=== PATIENT | male | born 1995 | race Caucasian/White ===

== ENCOUNTER 2018-02-25 17:27 | Emergency (ER) | payer OTHER ==
[2018-02-25 18:08] VITALS: BP 118/72
--- NOTE | 2018-02-25 18:46 | UC ---
Eye Complaint HPI - HPI Summary HPI Summary: Pt c/o gradual onset of left, generalized eye pain. Pt denies injury, fever, discharge, change in vision, or eye redness. Pt has not taken anything for pain. - History of Current Complaint Chief Complaint: UCGeneralIllness Stated Complaint: SORE THROAT, EYES, COLD SWEATS Time Seen by Provider: 02/25/18 18:39 Hx Obtained From: Patient Onset/Duration: Gradual Onset, Lasting Days, Still Present Timing: Constant Severity Initially: Mild Severity Currently: Mild Pain Intensity: 2 Character: Dull Aggravating Factor(s): Light Alleviating Factor(s): Nothing Associated Signs And Symptoms: Positive: Photophobia - Risk Factors Penetrating Injury Risk Factor: Negative Globe Rupture Risk Factors: Negative Acute Glaucoma Risk Factors: Negative Optic Artery Occlusion Risk Factors: Negative - Allergies/Home Medications Allergies/Adverse Reactions: Allergies Allergy/AdvReac Type Severity Reaction Status Date / Time No Known Allergies Allergy Verified 02/16/16 17:25 Home Medications: Home Medications NK [No Home Medications Reported] 02/25/18 [History Confirmed 02/25/18] PMH/Surg Hx/FS Hx/Imm Hx Previously Healthy: Yes - Surgical History Surgical History: Yes Surgery Procedure, Year, and Place: hypospadia surgery - Family History Known Family History: Positive: None - Social History Alcohol Use: Occasionally Substance Use Type: None Smoking Status (MU): Never Smoked Tobacco Have You Smoked in the Last Year: No - Immunization History Most Recent Influenza Vaccination: FALL 2013 Review of Systems Constitutional: Negative Skin: Negative Eyes: Photophobia, Other - left eye pain ENT: Negative Respiratory: Negative Cardiovascular: Negative Gastrointestinal: Negative Genitourinary: Negative Motor: Negative Neurovascular: Negative Musculoskeletal: Negative Neurological: Headache Psychological: Negative Is Patient Immunocompromised?: No All Other Systems Reviewed And Are Negative: Yes Physical Exam Triage Information Reviewed: Yes Vital Signs: Initial Vital Signs Temp 98.7 F 02/25/18 18:04 Pulse 64 02/25/18 18:04 Resp 16 02/25/18 18:04 BP 118/72 02/25/18 18:04 Pulse Ox 100 02/25/18 18:04 Eye Exam: Normal, Other - PERRLA Eyes: Positive: Conjunctiva Clear ENT Exam: Normal Dental Exam: Normal Neck exam: Normal Respiratory Exam: Normal Cardiovascular Exam: Normal Musculoskeletal Exam: Normal Neurological Exam: Normal Psychological Exam: Normal Skin Exam: Normal Eye Complaint Course/Dx - Differential Dx/Diagnosis Differential Diagnosis/HQI/PQRI: Other - eye pain Provider Diagnoses: left eye pain Discharge - Sign-Out/Discharge Documenting (check all that apply): Patient Departure - Discharge Plan Condition: Stable Disposition: HOME Patient Education Materials: Eye Pain (ED), Safe Use of NSAIDs (ED) Referrals: Thai Hernandez MD [Primary Care Provider] - If Needed Additional Instructions: Please follow up with your eye care provider as soon as possible. - Billing Disposition and Condition Condition: STABLE Disposition: Home
== END 2018-02-25 18:53 | disposition home or self-care (01) ==
LOC: UCCORT 17:27
DX: H57.12 Ocular pain, left eye (principal)
CPT/HCPCS: 99211; G0463

== ENCOUNTER 2018-05-05 11:13 | Emergency (ER) | payer OTHER ==
[2018-05-05 11:35] VITALS: BP 130/77
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
== END 2018-05-05 12:38 | disposition home or self-care (01) ==
LOC: UCCORT 11:13
DX: S06.0X0A Concussion without loss of consciousness, initial encounter (principal); V43.52XA Car driver injured in collision with other type car in traffic accident, initial encounter; Y93.89 Activity, other specified; Y92.410 Unspecified street and highway as the place of occurrence of the external cause; S16.1XXA Strain of muscle, fascia and tendon at neck level, initial encounter; S39.012A Strain of muscle, fascia and tendon of lower back, initial encounter
CPT/HCPCS: 99212; G0463

== ENCOUNTER 2018-05-17 13:06 | Emergency (ER) | payer OTHER ==
[2018-05-17 14:15] VITALS: BP 121/72
--- NOTE | 2018-05-17 15:27 | ED ---
Respiratory - History of Current Complaint Chief Complaint: UCRespiratory Stated Complaint: CONGESTION/CHEST TIGHTNESS/SOB/HENNING Time Seen by Provider: 05/17/18 14:56 Hx Obtained From: Patient Onset/Duration: Lasting Days Initial Severity: Moderate Current Severity: Moderate Pain Intensity: 5 Sputum Amount: Scant Sputum Color: Green Aggravating Factor(s): Nothing Alleviating Factor(s): Nothing Associated Signs and Symptoms: Negative - Risk Factors Status Asthmaticus Risk Factors: Negative Pulmonary Embolism Risk Factors: Negative Cardiac Risk Factors: Negative Pseudomonas Risk Factors: Negative Tuberculosis Risk Factors: Negative - Allergy/Home Medications Allergies/Adverse Reactions: Allergies Allergy/AdvReac Type Severity Reaction Status Date / Time No Known Allergies Allergy Verified 05/17/18 14:07 Home Medications: Home Medications guaiFENesin ER TAB [Mucinex*] 600 mg PO BID PRN 05/17/18 [History Confirmed 02/25] PMH/Surg Hx/FS Hx/Imm Hx Previously Healthy: Yes - Surgical History Surgery Procedure, Year, and Place: Hypospadia Repair, ~1999 Infectious Disease History: No Infectious Disease History: Denies: Traveled Outside the [place] in Last 30 Days - Family History Known Family History: Positive: None Family History: Noncontributory - Social History Alcohol Use: Occasionally Substance Use Type: Reports: None Smoking Status (MU): Never Smoked Tobacco Have You Smoked in the Last Year: No Review of Systems Positive: Chills Eyes: Negative ENT: Negative Cardiovascular: Negative Positive: Cough Gastrointestinal: Negative Genitourinary: Negative Musculoskeletal: Negative Skin: Negative All Other Systems Reviewed And Are Negative: Yes Physical Exam Triage Information Reviewed: Yes Vital Signs On Initial Exam: Initial Vitals Temp Pulse Resp BP Pulse Ox 37.6 C 72 20 121/72 97 05/17/18 14:08 05/17/18 14:08 05/17/18 14:08 05/17/18 14:08 05/17/18 14:08 Vital Signs Reviewed: Yes Appearance: Positive: Well-Appearing Skin: Positive: Warm, Dry Head/Face: Positive: Normal Head/Face Inspection Eyes: Positive: Normal ENT: Positive: Normal ENT inspection Neck: Positive: Supple Respiratory/Lung Sounds: Positive: Clear to Auscultation Cardiovascular: Positive: Normal Abdomen Description: Positive: Nontender Bowel Sounds: Positive: Present Musculoskeletal: Positive: Normal Neurological: Positive: Normal Diagnostics - Vital Signs Vital Signs Temp Pulse Resp BP Pulse Ox 05/17/18 14:08 37.6 C 72 20 121/72 97 - Laboratory Lab Results: Lab Results 05/17/18 Range/Units 15:06 Influenza A (Rapid) Negative (Negative) Influenza B (Rapid) Negative (Negative) Lab Statement: Any lab studies that have been ordered have been reviewed, and results considered in the medical decision making process. Disposition - Diagnoses Provider Diagnoses: Viral URI with cough Discharge - Sign-Out/Discharge Documenting (check all that apply): Patient Departure All imaging exams completed and their final reports reviewed: No Studies - Discharge Plan Condition: Good Disposition: HOME Prescriptions: Albuterol HFA INHALER* [Ventolin HFA Inhaler*] 2 puff INH Q6H PRN #1 mdi PRN Reason: Cough Patient Education Materials: Viral Syndrome (ED) Referrals: Thai Hernandez MD [Primary Care Provider] - - Billing Disposition and Condition Condition: GOOD Disposition: Home
== END 2018-05-17 15:33 | disposition home or self-care (01) ==
LOC: UCCORT 13:06
DX: J06.9 Acute upper respiratory infection, unspecified (principal); R05 Cough
CPT/HCPCS: 99212; G0463

== ENCOUNTER 2019-02-19 15:01 | Emergency (ER) | payer OTHER ==
[2019-02-19 16:45] VITALS: BP 120/53
--- NOTE | 2019-02-19 17:03 | UC ---
Ear Complaint HPI - HPI Summary HPI Summary: Pt presents with c/o gradual onset of "clogged feeling and hearing loss" in left ear. Pt was told that he has cerumen in ear canal but has not had time to have it removed. - History of Current Complaint Chief Complaint: UCEar Stated Complaint: LEFT EAR CONCERN Time Seen by Provider: 02/19/19 16:47 Hx Obtained From: Patient Onset/Duration: Gradual Onset, Lasting Days, Still Present Severity Initially: Mild Severity Currently: Mild Pain Intensity: 0 Associated Signs/Symptoms: Positive: Hearing Loss - Allergies/Home Medications Allergies/Adverse Reactions: Allergies Allergy/AdvReac Type Severity Reaction Status Date / Time No Known Allergies Allergy Verified 02/19/19 16:43 PMH/Surg Hx/FS Hx/Imm Hx Previously Healthy: Yes - Surgical History Surgical History: Yes Surgery Procedure, Year, and Place: Hypospadia Repair, ~1999 - Family History Known Family History: Positive: Cardiac Disease Family History: Noncontributory - Social History Occupation: Employed Full-time Alcohol Use: Occasionally Substance Use Type: None Smoking Status (MU): Never Smoked Tobacco Have You Smoked in the Last Year: No - Immunization History Most Recent Influenza Vaccination: FALL 2013 Vaccination Up to Date: Yes Review of Systems All Other Systems Reviewed And Are Negative: Yes Constitutional: Positive: Negative Skin: Positive: Negative Eyes: Positive: Negative ENT: Positive: Other - ear fullness and hearing loss left ear Respiratory: Positive: Negative Cardiovascular: Positive: Negative Gastrointestinal: Positive: Negative Genitourinary: Positive: Negative Motor: Positive: Negative Neurovascular: Positive: Negative Musculoskeletal: Positive: Negative Neurological: Positive: Negative Psychological: Positive: Negative Is Patient Immunocompromised?: No Physical Exam Triage Information Reviewed: Yes Appearance: Well-Appearing Vital Signs: Initial Vital Signs Temp 97.6 F 02/19/19 16:43 Pulse 60 02/19/19 16:43 Resp 16 02/19/19 16:43 BP 120/53 02/19/19 16:43 Pulse Ox 99 02/19/19 16:43 Vital Signs Reviewed: Yes Eye Exam: Normal ENT: Positive: Other - cerumen bilateral ear canals. Dental Exam: Normal Neck exam: Normal Respiratory Exam: Normal Respiratory: Positive: No respiratory distress Musculoskeletal Exam: Normal Neurological Exam: Normal Psychological Exam: Normal Skin Exam: Normal Ear Complaint Course/Dx - Differential Dx/Diagnosis Differential Diagnosis/HQI/PQRI: Cerumen Impaction, Otitis Media Provider Diagnosis: Excessive cerumen in both ear canals Discharge - Sign-Out/Discharge Documenting (check all that apply): Patient Departure All imaging exams completed and their final reports reviewed: No Studies - Discharge Plan Condition: Stable Disposition: HOME Patient Education Materials: Cerumen Impaction (ED) Referrals: Thai Hernandez MD [Primary Care Provider] - If Needed - Billing Disposition and Condition Condition: STABLE Disposition: Home
== END 2019-02-19 17:06 | disposition home or self-care (01) ==
LOC: UCCORT 15:01
DX: H61.23 Impacted cerumen, bilateral (principal)
CPT/HCPCS: 99213; G0463